=== PATIENT | female | born 1990 | race Caucasian/White ===

== ENCOUNTER 2021-05-17 18:55 | Emergency (ER) | payer SELFPAY ==
[2021-05-17 20:36] LABS: HEMOGLOBIN 12.1 gm/dl (12.3-15.3); RED BLOOD COUNT 4.35 M/UL (4.00-5.10); WHITE BLOOD COUNT 6.2 K/UL (4.5-11.0)
[2021-05-17 21:00] LABS: BUN/CREATININE RATIO 10 (0-10)
[2021-05-17] MEDS ORDERED: IBUPROFEN600 MG PO (23:39)
[2021-05-17] MEDS ORDERED: ZOFRAN4 MG PO (23:39)
== END 2021-05-17 23:50 | disposition home or self-care (01) ==
LOC: ER1 18:55
PROVIDERS: Physician Assistant Medical
DX: G43.909 Migraine, unspecified, not intractable, without status migrainosus (principal); Z90.89 Acquired absence of other organs
CPT/HCPCS: 70450; 80053; 81001; 84703; 85025; 85652; 86140; 96374; 96375; 99284; J1200; J1885; J2765; J7030

== ENCOUNTER 2022-03-10 14:26 | Emergency (ER) | payer SELFPAY ==
[~2022-03-10 14:26] MED LIST: IBUPROFEN600 MG PO; ZOFRAN4 MG PO
[2022-03-10 15:31] LABS: HEMOGLOBIN 9.9 gm/dl (12.3-15.3); RED BLOOD COUNT 3.96 M/UL (4.00-5.10)
[2022-03-10 15:52] LABS: BUN/CREATININE RATIO 5 (0-10)
[2022-03-10] MEDS ORDERED: ZOFRAN 4 MG TAB4 MG PO (18:59)
[2022-03-10] MEDS ORDERED: HYDROCODON-ACE1 EAC4 PO (18:59)
== END 2022-03-10 19:13 | disposition home or self-care (01) ==
LOC: ER1 14:26
PROVIDERS: Preventive Medicine Occupational Medicine
DX: N13.2 Hydronephrosis with renal and ureteral calculous obstruction (principal)
CPT/HCPCS: 80053; 81001; 83690; 84703; 85025; 85652; 86140; 87086; 96365; 96375; 99284; C9113; J2405; J2550; Q9967